=== PATIENT | female | born 1940 | race Caucasian/White ===

== ENCOUNTER 2016-09-28 10:00 | Outpatient (RCR) | END 2016-10-01 | LOC: NEWBEG 10:00 | PROVIDERS: ATTEND Psychiatry & Neurology Psychiatry | DX: F33.1 Major depressive disorder, recurrent, moderate (principal); F60.9 Personality disorder, unspecified | CPT/HCPCS: 90792; 90853 ==

== ENCOUNTER 2016-10-31 10:00 | Outpatient (RCR) | END 2016-11-01 | LOC: NEWBEG 10:00 | PROVIDERS: ATTEND Psychiatry & Neurology Psychiatry | DX: F33.1 Major depressive disorder, recurrent, moderate (principal); F60.9 Personality disorder, unspecified | CPT/HCPCS: 90853; 99213 ==

== ENCOUNTER 2016-11-28 10:00 | Outpatient (RCR) | END 2016-12-01 | LOC: NEWBEG 10:00 | PROVIDERS: ATTEND Psychiatry & Neurology Psychiatry | DX: F33.1 Major depressive disorder, recurrent, moderate (principal); F60.9 Personality disorder, unspecified | CPT/HCPCS: 90853; 99213 ==